=== PATIENT | female | born 1960 | race Two or more races ===

== ENCOUNTER 2016-07-28 11:01 | Outpatient (CLI) | payer BC ==
[2016-07-28 11:38] LABS: BASOPHILS % (AUTO) 0.5 % (0.0-2.0); EOSINOPHILS # (AUTO) 0.1 /CMM (0.0-0.7); HEMATOCRIT 42 % (33-45); HEMOGLOBIN 13.9 g/dL (11.5-14.8); LYMPHOCYTES # (AUTO) 1.8 /CMM (0.8-4.8); MEAN CORPUSCULAR HEMOGLOBIN 30 PG (26.0-33.0); MEAN CORPUSCULAR HGB CONC 33 g/dl (31.0-36.0); MEAN CORPUSCULAR VOLUME 91 fL (82-100); MONOCYTES # (AUTO) 0.3 /CMM (0.1-1.30); MONOCYTES % (AUTO) 5.8 % (2.0-12.0); NEUTROPHILS # (AUTO) 2.4 /CMM (1.8-8.9); NEUTROPHILS % (AUTO) 52.7 % (43.0-81.0); PLATELET COUNT (AUTO) 300 /CMM (150-450); RDW COEFFICIENT OF VARIATION 13.2 (11.5-15.0); RED BLOOD CELL COUNT(AUTO) 4.59 MIL/uL (4.0-5.2); WHITE BLOOD COUNT (AUTO) 4.6 K/uL (4.3-11.0)
[2016-07-28 11:59] LABS: ALBUMIN 4.1 g/dL (3.4-5.0); BILIRUBIN,TOTAL 0.5 mg/dL (0.2-1.0); CALCIUM, SERUM 8.9 mg/dL (8.5-10.1); CREATININE 0.7 mg/dL (0.6-1.3); POTASSIUM 4.5 mmol/L (3.5-5.1); TOTAL PROTEIN, SERUM 7.5 g/dL (6.4-8.2)
[2016-07-28 12:08] LABS: THYROID STIMULATING HORMONE 1.28 uIU/mL (0.358-3.74)
== END 2016-07-28 23:59 | disposition home or self-care (01) ==
LOC: LAB 11:01
PROVIDERS: ATTEND Family Medicine
DX: Z00.01 Encounter for general adult medical examination with abnormal findings (principal); N39.0 Urinary tract infection, site not specified; E55.9 Vitamin D deficiency, unspecified
CPT/HCPCS: 36415; 80053-TC; 80061-TC; 82306; 84439-TC; 84443-TC; 85025-TC; 87086-TC

== ENCOUNTER → 2016-08-11 | Outpatient (CLI) | payer BC | END | disposition home or self-care (01) | LOC: RAD 10:50 | PROVIDERS: ATTEND Family Medicine | DX: R07.9 Chest pain, unspecified (principal); R10.9 Unspecified abdominal pain; M47.819 Spondylosis without myelopathy or radiculopathy, site unspecified | CPT/HCPCS: 71020-TC ==

== ENCOUNTER 2016-08-19 08:48 | Outpatient (CLI) | payer BC | END 2016-08-19 23:59 | disposition home or self-care (01) | LOC: US 08:48 | PROVIDERS: ATTEND Family Medicine | DX: K80.20 Calculus of gallbladder without cholecystitis without obstruction (principal); K82.8 Other specified diseases of gallbladder; K76.0 Fatty (change of) liver, not elsewhere classified; M79.605 Pain in left leg | CPT/HCPCS: 76700-TC ==

== ENCOUNTER 2016-08-25 13:36 | Outpatient (CLI) | payer BC ==
[2016-08-25 15:13] LABS: BASOPHILS % (AUTO) 0.6 % (0.0-2.0); EOSINOPHILS # (AUTO) 0.1 /CMM (0.0-0.7); EOSINOPHILS % (AUTO) 2.6 % (0.0-6.0); HEMATOCRIT 41 % (33-45); HEMOGLOBIN 13.6 g/dL (11.5-14.8); LYMPHOCYTES # (AUTO) 1.9 /CMM (0.8-4.8); LYMPHOCYTES % (AUTO) 36.1 % (20.0-44.0); MEAN CORPUSCULAR HEMOGLOBIN 30 PG (26.0-33.0); MEAN CORPUSCULAR HGB CONC 34 g/dl (31.0-36.0); MEAN CORPUSCULAR VOLUME 91 fL (82-100); MONOCYTES # (AUTO) 0.3 /CMM (0.1-1.30); MONOCYTES % (AUTO) 5.6 % (2.0-12.0); NEUTROPHILS # (AUTO) 2.9 /CMM (1.8-8.9); NEUTROPHILS % (AUTO) 55.1 % (43.0-81.0); PLATELET COUNT (AUTO) 277 /CMM (150-450); RDW COEFFICIENT OF VARIATION 13.4 (11.5-15.0); RED BLOOD CELL COUNT(AUTO) 4.49 MIL/uL (4.0-5.2); WHITE BLOOD COUNT (AUTO) 5.3 K/uL (4.3-11.0)
[2016-08-25 15:26] LABS: APPEARANCE,URINE SL CLOUDY (CLEAR); BILIRUBIN,URINE NEGATIVE (NEGATIVE); BLOOD, URINE 3+ Ery/uL (NEGATIVE); COLOR,URINE YELLOW (YELLOW); KETONES,URINE TRACE (NEGATIVE); LEUKOCYTE ESTERASE ,URINE 2+ (NEGATIVE); NITRITE, URINE NEGATIVE (NEGATIVE); PROTEIN,URINE NEGATIVE (NEGATIVE); UGLUCOSE NEGATIVE (NEGATIVE); UROBILINOGEN,URINE 0.2 EU/dL (0.2)
[2016-08-25 15:52] LABS: ADD URINE CULTURE YES; BACTERIA,URINE Few /HPF (None Seen); SQUAMOUS EPITHELIAL CELL,UR Few /HPF (None Seen)
== END 2016-08-25 23:59 | disposition home or self-care (01) ==
LOC: LAB 13:36
PROVIDERS: ATTEND Family Medicine
DX: K80.00 Calculus of gallbladder with acute cholecystitis without obstruction (principal)
CPT/HCPCS: 36415; 81000-TC; 85025-TC; 87086-TC

== ENCOUNTER 2016-09-01 10:10 | Outpatient (CLI) | payer BC | END 2016-09-01 23:59 | disposition home or self-care (01) | LOC: LAB 10:10 | PROVIDERS: ATTEND Family Medicine | DX: Z12.11 Encounter for screening for malignant neoplasm of colon (principal) | CPT/HCPCS: 82272-TC ==

== ENCOUNTER 2016-09-02 09:01 | Outpatient (CLI) | payer BC ==
[2016-09-02] MEDS ORDERED: CT SWABBABLE VALVE TRANS SET 1 EA INFUS.SET MC ONE (09:23)
[2016-09-02] MEDS ORDERED: IV NS 0.9% 250 ML IV ONE (09:23)
[2016-09-02] MEDS ORDERED: IOHEXOL-300 100 ML VIAL IV ONE (09:24)
== END 2016-09-02 23:59 | disposition home or self-care (01) ==
LOC: CT 09:01
PROVIDERS: ATTEND Family Medicine
DX: N28.1 Cyst of kidney, acquired (principal); D25.9 Leiomyoma of uterus, unspecified; N28.89 Other specified disorders of kidney and ureter; J98.11 Atelectasis; K82.8 Other specified diseases of gallbladder; M47.899 Other spondylosis, site unspecified
CPT/HCPCS: 74178; J7050; Q9967

== ENCOUNTER 2017-01-05 11:15 | Outpatient (CLI) | payer BC | END 2017-01-05 23:59 | disposition home or self-care (01) | LOC: RAD 11:15 | PROVIDERS: ATTEND Family Medicine | DX: Z01.818 Encounter for other preprocedural examination (principal) | CPT/HCPCS: 71020-TC ==

== ENCOUNTER 2017-03-15 08:31 | Outpatient (CLI) | payer BC ==
[2017-03-15 09:34] LABS: CREATININE 0.7 mg/dL (0.6-1.3)
== END 2017-03-15 23:59 | disposition home or self-care (01) ==
LOC: LAB 08:31
PROVIDERS: ATTEND Urology
DX: D41.01 Neoplasm of uncertain behavior of right kidney (principal)
CPT/HCPCS: 36415; 82565-TC; 84520-TC

== ENCOUNTER 2017-03-16 08:43 | Outpatient (CLI) | payer BC ==
[2017-03-16] MEDS ORDERED: IOHEXOL-300 100 ML VIAL IV ONE (08:57)
== END 2017-03-16 23:59 | disposition home or self-care (01) ==
LOC: CT 08:43
PROVIDERS: ATTEND Urology
DX: N28.1 Cyst of kidney, acquired (principal); D25.9 Leiomyoma of uterus, unspecified; K80.20 Calculus of gallbladder without cholecystitis without obstruction; M47.896 Other spondylosis, lumbar region
CPT/HCPCS: 74178; Q9967

== ENCOUNTER 2017-07-13 11:02 | Outpatient (CLI) | payer BC ==
[2017-07-13 12:05] LABS: BASOPHILS # (AUTO) 0.1 /CMM (0.0-0.2); HEMATOCRIT 43 % (33-45); HEMOGLOBIN 14.7 g/dL (11.5-14.8); LYMPHOCYTES # (AUTO) 1.6 /CMM (0.8-4.8); LYMPHOCYTES % (AUTO) 30.6 % (20.0-44.0); MEAN CORPUSCULAR HGB CONC 34 g/dl (31.0-36.0); MEAN CORPUSCULAR VOLUME 91 fL (82-100); MONOCYTES # (AUTO) 0.3 /CMM (0.1-1.30); NEUTROPHILS # (AUTO) 3.3 /CMM (1.8-8.9); NEUTROPHILS % (AUTO) 60.4 % (43.0-81.0); PLATELET COUNT (AUTO) 334 /CMM (150-450); RED BLOOD CELL COUNT(AUTO) 4.74 MIL/uL (4.0-5.2); WHITE BLOOD COUNT (AUTO) 5.4 K/uL (4.3-11.0)
[2017-07-13 12:25] LABS: APPEARANCE,URINE SL CLOUDY (CLEAR); BILIRUBIN,URINE NEGATIVE (NEGATIVE); BLOOD, URINE 1+ Ery/uL (NEGATIVE); COLOR,URINE YELLOW (YELLOW); KETONES,URINE NEGATIVE (NEGATIVE); LEUKOCYTE ESTERASE ,URINE TRACE (NEGATIVE); NITRITE, URINE NEGATIVE (NEGATIVE); PH,URINE 6.5 (5.0-8.0); PROTEIN,URINE NEGATIVE (NEGATIVE); UGLUCOSE NEGATIVE (NEGATIVE); UROBILINOGEN,URINE 0.2 EU/dL (0.2)
[2017-07-13 12:36] LABS: ALBUMIN 4.1 g/dL (3.4-5.0); BILIRUBIN,TOTAL 0.7 mg/dL (0.2-1.0); CALCIUM, SERUM 9.2 mg/dL (8.5-10.1); CREATININE 0.7 mg/dL (0.6-1.3); TOTAL PROTEIN, SERUM 8.1 g/dL (6.4-8.2)
[2017-07-13 12:42] LABS: BACTERIA,URINE Few /HPF (None Seen)
[2017-07-13 12:43] LABS: SQUAMOUS EPITHELIAL CELL,UR Moderate /HPF (None Seen)
[2017-07-13 13:01] LABS: INR 0.96 (0.87-1.13)
== END 2017-07-13 23:59 | disposition home or self-care (01) ==
LOC: LAB 11:02
PROVIDERS: ATTEND Family Medicine
DX: Z01.818 Encounter for other preprocedural examination (principal); M47.894 Other spondylosis, thoracic region; Q25.46 Tortuous aortic arch; K52.9 Noninfective gastroenteritis and colitis, unspecified
CPT/HCPCS: 36415; 71046; 80053-TC; 81000-TC; 85025-TC; 85610-TC; 85730-TC

== ENCOUNTER 2017-07-28 06:19 | Day surgery (SDC) | payer BC ==
[~2017-07-28] VITALS: Ht 162.6 cm; Wt 93.9 kg
[~2017-07-28 06:19] MED LIST: CEFAZOLIN SODIUM/DEXTROSE,ISO 100 ML IV ONE
[2017-07-28] MEDS ORDERED: LIDOCAINE 1%-EPI 1:100,000 20 ML VIAL ONE (08:47)
[2017-07-28] MEDS ORDERED: ROCURONIUM BROMIDE 50 MG/5 ML ONE (08:50)
[2017-07-28] MEDS ORDERED: MIDAZOLAM HCL 2 MG/2ML VIAL ONE (08:50)
[2017-07-28] MEDS ORDERED: HYDROCODONE/APAP 5/325MG 1 EACH TABLET PO PRN ×2 (09:00)
[2017-07-28] MEDS ORDERED: ONDANSETRON HCL/PF 4 MG/2 ML VIAL IVP PRN (09:00)
[2017-07-28] MEDS ORDERED: BUPIVACAINE 0.25% 75 MG/30 ML VIAL ONE (09:10)
[2017-07-28] MEDS ORDERED: METRONIDAZOLE 500MG/ NS 100ML 100 ML IV ONE (09:14)
[2017-07-28] MEDS ORDERED: FENTANYL PF 100MCG/2ML AMPUL IV PRN (09:30)
[2017-07-28] MEDS ORDERED: HYDROMORPHONE INJ 2 MG/ML DISP.SYRIN IV ONE (11:00)
== END 2017-07-28 12:14 | disposition home or self-care (01) ==
LOC: DS 06:19
PROVIDERS: ATTEND Surgery
DX: K80.10 Calculus of gallbladder with chronic cholecystitis without obstruction (principal); K76.0 Fatty (change of) liver, not elsewhere classified; E66.9 Obesity, unspecified; Z68.35 Body mass index [BMI] 35.0-35.9, adult; I10 Essential (primary) hypertension; F32.9 Major depressive disorder, single episode, unspecified; K21.9 Gastro-esophageal reflux disease without esophagitis; M06.9 Rheumatoid arthritis, unspecified
CPT/HCPCS: 36415; 47379; 47562; 64488; 86850; 87081; J0690; J1100; J1170; J1885; J2250; J2405; J2704; J3010; J3490 ×3

== ENCOUNTER 2017-09-27 08:58 | Outpatient (CLI) | payer BC ==
[2017-09-27 10:25] LABS: APPEARANCE,URINE CLEAR (CLEAR); BILIRUBIN,URINE NEGATIVE (NEGATIVE); BLOOD, URINE TRACE Ery/uL (NEGATIVE); COLOR,URINE YELLOW (YELLOW); KETONES,URINE NEGATIVE (NEGATIVE); LEUKOCYTE ESTERASE ,URINE TRACE (NEGATIVE); NITRITE, URINE NEGATIVE (NEGATIVE); PROTEIN,URINE NEGATIVE (NEGATIVE); UGLUCOSE NEGATIVE (NEGATIVE); UROBILINOGEN,URINE 0.2 EU/dL (0.2)
[2017-09-27 10:26] LABS: BASOPHILS % (AUTO) 0.4 % (0.0-2.0); EOSINOPHILS % (AUTO) 1.7 % (0.0-6.0); HEMATOCRIT 39 % (33-45); HEMOGLOBIN 13.2 g/dL (11.5-14.8); LYMPHOCYTES # (AUTO) 1.6 /CMM (0.8-4.8); LYMPHOCYTES % (AUTO) 34.7 % (20.0-44.0); MEAN CORPUSCULAR HGB CONC 34 g/dl (31.0-36.0); MEAN CORPUSCULAR VOLUME 94 fL (82-100); MONOCYTES # (AUTO) 0.2 /CMM (0.1-1.30); MONOCYTES % (AUTO) 4.2 % (2.0-12.0); NEUTROPHILS # (AUTO) 2.8 /CMM (1.8-8.9); PLATELET COUNT (AUTO) 305 /CMM (150-450); RDW COEFFICIENT OF VARIATION 14.1 (11.5-15.0); RED BLOOD CELL COUNT(AUTO) 4.15 MIL/uL (4.0-5.2); WHITE BLOOD COUNT (AUTO) 4.7 K/uL (4.3-11.0)
[2017-09-27 10:36] LABS: BACTERIA,URINE Rare /HPF (None Seen); SQUAMOUS EPITHELIAL CELL,UR Few /HPF (None Seen)
[2017-09-27 10:48] LABS: ALBUMIN 3.8 g/dL (3.4-5.0); BILIRUBIN,TOTAL 0.4 mg/dL (0.2-1.0); CALCIUM, SERUM 8.5 mg/dL (8.5-10.1); CREATININE 0.7 mg/dL (0.6-1.3); TOTAL PROTEIN, SERUM 7.2 g/dL (6.4-8.2)
[2017-09-27 10:56] LABS: FREE T4 (FREE THYROXINE) 1.05 ng/dL (0.76-1.46); THYROID STIMULATING HORMONE 1.723 uIU/mL (0.358-3.74)
== END 2017-09-27 23:59 | disposition home or self-care (01) ==
LOC: LAB 08:58
PROVIDERS: ATTEND Family Medicine
DX: Z00.01 Encounter for general adult medical examination with abnormal findings (principal); Z11.59 Encounter for screening for other viral diseases; Z68.34 Body mass index [BMI] 34.0-34.9, adult; R31.9 Hematuria, unspecified
CPT/HCPCS: 36415; 80053-TC; 80061-TC; 81000-TC; 82306; 84439-TC; 84443-TC; 85025-TC; 86709-TC; 86803; 87086-TC

== ENCOUNTER 2017-11-01 10:24 | Outpatient (CLI) | payer BC | END 2017-11-01 23:59 | disposition home or self-care (01) | LOC: LAB 10:24 | PROVIDERS: ATTEND Family Medicine | DX: Z12.4 Encounter for screening for malignant neoplasm of cervix (principal); Z11.3 Encounter for screening for infections with a predominantly sexual mode of transmission | CPT/HCPCS: 87491; 87591; 88142 ==

== ENCOUNTER 2018-12-19 11:28 | Outpatient (CLI) | payer BC ==
[2018-12-19 12:04] LABS: CREATININE 0.7 mg/dL (0.6-1.3)
== END 2018-12-19 23:59 | disposition home or self-care (01) ==
LOC: LAB 11:28
PROVIDERS: ATTEND Family Medicine
DX: R31.9 Hematuria, unspecified (principal); I10 Essential (primary) hypertension
CPT/HCPCS: 36415; 82565-TC; 84520-TC

== ENCOUNTER 2018-12-26 08:37 | Outpatient (CLI) | payer BC ==
[2018-12-26] MEDS ORDERED: IOHEXOL-300 100 ML VIAL IV ONE (09:09)
[2018-12-26] MEDS ORDERED: CT SWABBABLE VALVE TRANS SET 1 EA INFUS.SET MC ONE (09:09)
[2018-12-26] MEDS ORDERED: IV NS 0.9% 250 ML IV ONE (09:09)
== END 2018-12-26 23:59 | disposition home or self-care (01) ==
LOC: CT 08:37
PROVIDERS: ATTEND Family Medicine
DX: N28.1 Cyst of kidney, acquired (principal); N28.89 Other specified disorders of kidney and ureter; D25.9 Leiomyoma of uterus, unspecified; K83.8 Other specified diseases of biliary tract; I10 Essential (primary) hypertension; Z90.49 Acquired absence of other specified parts of digestive tract
CPT/HCPCS: 74178; J7050; Q9967

== ENCOUNTER 2019-04-29 19:35 | Emergency (ER) | payer BC, OTHER ==
[~2019-04-29] VITALS: Ht 162.6 cm; Wt 90.7 kg
--- NOTE | 2019-04-29 21:46 | NUR ---
PT TO GET BLANCO LENS IN BILATERAL EYES.
--- NOTE | 2019-04-29 22:22 | NUR ---
LAN ADMINISTRATOR, ROBYN, IS AT THE BEDSIDE.
[2019-04-29 22:32] LABS: BASOPHILS # (AUTO) 0.1 /CMM (0.0-0.2); EOSINOPHILS % (AUTO) 2.7 % (0.0-6.0); HEMATOCRIT 40 % (33-45); HEMOGLOBIN 13.4 g/dL (11.5-14.8); LYMPHOCYTES # (AUTO) 1.9 /CMM (0.8-4.8); MEAN CORPUSCULAR HGB CONC 33 g/dl (31.0-36.0); MEAN CORPUSCULAR VOLUME 94 fL (82-100); MONOCYTES # (AUTO) 0.4 /CMM (0.1-1.30); MONOCYTES % (AUTO) 5.6 % (2.0-12.0); NEUTROPHILS # (AUTO) 3.9 /CMM (1.8-8.9); NEUTROPHILS % (AUTO) 60.7 % (43.0-81.0); PLATELET COUNT (AUTO) 294 /CMM (150-450); RED BLOOD CELL COUNT(AUTO) 4.26 MIL/uL (4.0-5.2); WHITE BLOOD COUNT (AUTO) 6.5 K/uL (4.3-11.0)
[2019-04-29 22:40] LABS: CALCIUM, SERUM 9.6 mg/dL (8.5-10.1); CREATININE 0.7 mg/dL (0.6-1.3); POTASSIUM 4.4 mmol/L (3.5-5.1)
[2019-04-29 22:46] LABS: ALBUMIN 3.9 g/dL (3.4-5.0); BILIRUBIN,TOTAL 0.2 mg/dL (0.2-1.0); TOTAL PROTEIN, SERUM 7.6 g/dL (6.4-8.2)
--- NOTE | 2019-04-29 23:18 | NUR ---
Patient discharged to home in stable condition. Written and verbal after care instructions given. Patient verbalizes understanding of instruction AND RX. PT REC'D AN EXCUSE FOR WORK. PT AMBULATED OUT WITH A STEADY GAIT. VSS. NAD NOTED.
[2019-04-29 23:21] VITALS: BP 138/75
== END 2019-04-29 23:21 | disposition home or self-care (01) ==
LOC: ER 19:38
DX: Z77.21 Contact with and (suspected) exposure to potentially hazardous body fluids (principal); I10 Essential (primary) hypertension; Z98.890 Other specified postprocedural states; Z91.013 Allergy to seafood
CPT/HCPCS: 36415; 80053-TC; 80074; 85025-TC

== ENCOUNTER 2019-05-30 14:52 | Outpatient (CLI) | payer BC | END 2019-05-30 23:59 | disposition home or self-care (01) | LOC: CARD 14:52 | PROVIDERS: ATTEND Internal Medicine Cardiovascular Disease | DX: I73.9 Peripheral vascular disease, unspecified (principal) | CPT/HCPCS: 93926-TC ==

== ENCOUNTER 2019-09-21 15:12 | Emergency (ER) | payer BC, OTHER ==
[~2019-09-21] VITALS: Ht 162.6 cm; Wt 101.6 kg
[2019-09-21 15:17] VITALS: BP 161/98
--- NOTE | 2019-09-21 15:48 | NUR ---
COVID SWAB OBTAINED AND SENT TO LAB.
--- NOTE | 2019-09-21 15:49 | NUR ---
Patient discharged to home in stable condition. Written and verbal after care instructions given. Patient verbalizes understanding of instruction.
--- NOTE | 2019-09-23 00:56 | NUR ---
RECEIVED A CALL FROM LAB W/ NEGATIVE COVID RESULTS
== END 2019-09-21 15:50 | disposition home or self-care (01) ==
LOC: ER 15:19
DX: Z11.59 Encounter for screening for other viral diseases (principal); I10 Essential (primary) hypertension
CPT/HCPCS: 99283; C9803; U0003

== ENCOUNTER 2019-10-01 14:44 | Emergency (ER) | payer OTHER ==
[~2019-10-01] VITALS: Ht 162.6 cm; Wt 93.0 kg
[2019-10-01 14:54] VITALS: BP 145/93
--- NOTE | 2019-10-04 07:05 | NUR ---
COVID TEST NEGATIVE
== END 2019-10-01 15:54 | disposition home or self-care (01) ==
LOC: ER 14:54
DX: Z11.59 Encounter for screening for other viral diseases (principal); I10 Essential (primary) hypertension
CPT/HCPCS: 99283; U0003; C9803-CS

== ENCOUNTER 2019-10-15 15:12 | Emergency (ER) | payer BC, OTHER ==
[~2019-10-15] VITALS: Ht 162.6 cm; Wt 95.3 kg
[2019-10-15 15:27] VITALS: BP 145/85
== END 2019-10-15 15:38 | disposition home or self-care (01) ==
LOC: ER 15:20
DX: Z11.59 Encounter for screening for other viral diseases (principal)
CPT/HCPCS: 99283; C9803; U0003

== ENCOUNTER 2019-10-22 12:57 | Emergency (ER) | payer OTHER ==
[~2019-10-22] VITALS: Ht 162.6 cm; Wt 95.3 kg
--- NOTE | 2019-10-22 13:00 | NUR ---
Called NO response
[2019-10-22 13:11] VITALS: BP 140/82
--- NOTE | 2019-10-22 13:40 | NUR ---
COVID SWAB DONE AND SENT TO LAB
--- NOTE | 2019-10-22 14:18 | NUR ---
Patient discharged to home in stable condition. Written and verbal after care instructions given. Patient verbalizes understanding of instruction. Pt ambulatory with a steady gait
== END 2019-10-22 14:19 | disposition home or self-care (01) ==
LOC: ER 13:05
DX: Z11.59 Encounter for screening for other viral diseases (principal); I10 Essential (primary) hypertension
CPT/HCPCS: 99283; C9803; U0003

== ENCOUNTER 2019-10-28 15:33 | Emergency (ER) | payer OTHER ==
[~2019-10-28] VITALS: Ht 162.6 cm; Wt 95.3 kg
[2019-10-28 15:47] VITALS: BP 134/84
== END 2019-10-28 16:21 | disposition home or self-care (01) ==
LOC: ER 15:39
DX: Z11.59 Encounter for screening for other viral diseases (principal); I10 Essential (primary) hypertension; Z91.013 Allergy to seafood
CPT/HCPCS: 99283; C9803; U0003

== ENCOUNTER 2019-11-05 14:55 | Emergency (ER) | payer OTHER ==
[~2019-11-05] VITALS: Ht 162.6 cm; Wt 95.3 kg
[2019-11-05 15:14] VITALS: BP 152/100
--- NOTE | 2019-11-05 15:42 | NUR ---
COVID SWAB OBTAINED AND SENT TO LAB.
--- NOTE | 2019-11-05 15:47 | NUR ---
Patient discharged to home in stable condition. Written and verbal after care instructions given. Patient verbalizes understanding of instruction.
== END 2019-11-05 15:48 | disposition home or self-care (01) ==
LOC: ER 14:55
DX: Z03.818 Encounter for observation for suspected exposure to other biological agents ruled out (principal); I10 Essential (primary) hypertension
CPT/HCPCS: 99283; C9803; U0003

== ENCOUNTER 2019-11-12 14:02 | Emergency (ER) | payer OTHER ==
[~2019-11-12] VITALS: Ht 162.6 cm; Wt 95.3 kg
[2019-11-12 14:10] VITALS: BP 140/87
--- NOTE | 2019-11-12 14:57 | NUR ---
covid 19 swab collected and sent to lab
--- NOTE | 2019-11-12 14:58 | NUR ---
Patient discharged to home in stable condition. Written and verbal after care instructions given. Patient verbalizes understanding of instruction.
== END 2019-11-12 14:58 | disposition home or self-care (01) ==
LOC: ER 14:03
DX: Z20.828 Contact with and (suspected) exposure to other viral communicable diseases (principal); I10 Essential (primary) hypertension; Z91.013 Allergy to seafood
CPT/HCPCS: 99283; C9803; U0003

== ENCOUNTER 2019-12-17 10:51 | Emergency (ER) | payer OTHER ==
[~2019-12-17] VITALS: Ht 162.6 cm; Wt 95.3 kg
[2019-12-17 10:51] VITALS: BP 146/88
--- NOTE | 2019-12-17 11:26 | NUR ---
covid test taken and sent to lab. Patient discharged to home in stable condition. Written and verbal after care instructions given. Patient verbalizes understanding of instruction.
== END 2019-12-17 11:28 | disposition home or self-care (01) ==
LOC: ER 10:52
DX: Z20.828 Contact with and (suspected) exposure to other viral communicable diseases (principal); I10 Essential (primary) hypertension; Z91.013 Allergy to seafood
CPT/HCPCS: 99283; C9803; U0003

== ENCOUNTER 2019-12-24 10:06 | Emergency (ER) | payer OTHER ==
[~2019-12-24] VITALS: Ht 162.6 cm; Wt 95.3 kg
[2019-12-24 10:23] VITALS: BP 147/89
== END 2019-12-24 11:52 | disposition home or self-care (01) ==
LOC: ER 10:06
DX: Z20.828 Contact with and (suspected) exposure to other viral communicable diseases (principal)
CPT/HCPCS: 99283; C9803; U0003

== ENCOUNTER 2019-12-31 14:04 | Emergency (ER) | payer OTHER ==
[~2019-12-31] VITALS: Ht 165.1 cm; Wt 83.9 kg
[2019-12-31 14:07] VITALS: BP 136/78
--- NOTE | 2019-12-31 15:01 | NUR ---
Patient discharged to home in stable condition. Written and verbal after care instructions given. Patient verbalizes understanding of instruction. Pt ambulatory with a steady gait
--- NOTE | 2019-12-31 15:01 | NUR ---
COVID SWAB DONE AND SENT TO LAB
== END 2019-12-31 15:03 | disposition home or self-care (01) ==
LOC: ER 14:06
DX: Z20.828 Contact with and (suspected) exposure to other viral communicable diseases (principal); I10 Essential (primary) hypertension; Z91.013 Allergy to seafood
CPT/HCPCS: 99283; C9803; U0003

== ENCOUNTER 2020-01-06 15:48 | Emergency (ER) | payer OTHER ==
[~2020-01-06] VITALS: Ht 162.6 cm; Wt 95.3 kg
[2020-01-06 15:50] VITALS: BP 131/67
--- NOTE | 2020-01-06 16:18 | NUR ---
COVID SWAB DONE AND SENT TO LAB
--- NOTE | 2020-01-06 16:22 | NUR ---
Patient discharged to home in stable condition. Written and verbal after care instructions given. Patient verbalizes understanding of instruction.
== END 2020-01-06 16:30 | disposition home or self-care (01) ==
LOC: ER 15:52
DX: Z20.828 Contact with and (suspected) exposure to other viral communicable diseases (principal); I10 Essential (primary) hypertension; Z91.013 Allergy to seafood
CPT/HCPCS: 99283; C9803; U0003

== ENCOUNTER 2020-01-13 14:40 | Emergency (ER) | payer OTHER ==
[~2020-01-13] VITALS: Ht 162.6 cm; Wt 95.3 kg
[2020-01-13 14:44] VITALS: BP 131/71
--- NOTE | 2020-01-13 15:39 | NUR ---
Patient discharged to home in stable condition. Written and verbal after care instructions given. Patient verbalizes understanding of instruction.
== END 2020-01-13 15:39 | disposition home or self-care (01) ==
LOC: ER 14:41
DX: Z20.828 Contact with and (suspected) exposure to other viral communicable diseases (principal); Z91.013 Allergy to seafood; I10 Essential (primary) hypertension
CPT/HCPCS: 99283; C9803; U0003

== ENCOUNTER 2020-01-20 14:33 | Emergency (ER) | payer OTHER ==
[~2020-01-20] VITALS: Ht 162.6 cm; Wt 96.6 kg
[2020-01-20 14:47] VITALS: BP 125/81
--- NOTE | 2020-01-20 15:11 | NUR ---
COVID SWAB DONE AND SENT TO LAB
--- NOTE | 2020-01-20 15:12 | NUR ---
Patient discharged to home in stable condition. Written and verbal after care instructions given. Patient verbalizes understanding of instruction. Pt ambulatory with a steady gait
== END 2020-01-20 15:12 | disposition home or self-care (01) ==
LOC: ER 14:43
DX: Z20.828 Contact with and (suspected) exposure to other viral communicable diseases (principal); I10 Essential (primary) hypertension; Z91.013 Allergy to seafood
CPT/HCPCS: 99283; C9803; U0003

== ENCOUNTER 2020-01-28 14:25 | Emergency (ER) | payer OTHER ==
[~2020-01-28] VITALS: Ht 162.6 cm; Wt 95.3 kg
[2020-01-28 14:31] VITALS: BP 135/81
== END 2020-01-28 14:53 | disposition home or self-care (01) ==
LOC: ER 14:51
DX: Z20.828 Contact with and (suspected) exposure to other viral communicable diseases (principal); I10 Essential (primary) hypertension; Z91.013 Allergy to seafood
CPT/HCPCS: 99283; C9803; U0003

== ENCOUNTER 2020-02-03 15:02 | Emergency (ER) | payer OTHER ==
[~2020-02-03] VITALS: Ht 162.6 cm; Wt 96.6 kg
[2020-02-03 15:05] VITALS: BP 138/92
--- NOTE | 2020-02-03 15:21 | NUR ---
Patient discharged to home in stable condition. Written and verbal after care instructions given. Patient verbalizes understanding of instruction. Pt ambulatory with a steady gait
--- NOTE | 2020-02-03 15:21 | NUR ---
COVID SWAB DONE AND SENT TO LAB
--- NOTE | 2020-02-04 20:54 | NUR ---
LAB CALLED REGARDING NEGATIVE COVID RESULT.
== END 2020-02-03 15:22 | disposition home or self-care (01) ==
LOC: ER 15:03
DX: Z20.828 Contact with and (suspected) exposure to other viral communicable diseases (principal); I10 Essential (primary) hypertension; Z91.013 Allergy to seafood
CPT/HCPCS: 99283; C9803; U0003

== ENCOUNTER 2020-02-10 14:31 | Emergency (ER) | payer OTHER ==
[~2020-02-10] VITALS: Ht 162.6 cm; Wt 86.2 kg
--- NOTE | 2020-02-10 14:56 | NUR ---
covid swab done an dsent to lab
[2020-02-10 14:58] VITALS: BP 128/65
--- NOTE | 2020-02-10 14:59 | NUR ---
Patient discharged to home in stable condition. Written and verbal after care instructions given. Patient verbalizes understanding of instruction. Pt ambulatory with a steady gait
== END 2020-02-10 15:00 | disposition home or self-care (01) ==
LOC: ER 14:35
DX: Z20.828 Contact with and (suspected) exposure to other viral communicable diseases (principal); I10 Essential (primary) hypertension; Z91.013 Allergy to seafood
CPT/HCPCS: 99283; C9803; U0003

== ENCOUNTER 2020-02-17 15:48 | Emergency (ER) | payer OTHER ==
[~2020-02-17] VITALS: Ht 162.6 cm; Wt 95.3 kg
[2020-02-17 15:54] VITALS: BP 130/76
== END 2020-02-17 16:31 | disposition home or self-care (01) ==
LOC: ER 15:50
DX: Z20.828 Contact with and (suspected) exposure to other viral communicable diseases (principal); I10 Essential (primary) hypertension; Z91.013 Allergy to seafood
CPT/HCPCS: 99283; C9803; U0003

== ENCOUNTER 2020-02-25 12:30 | Emergency (ER) | payer OTHER ==
[~2020-02-25] VITALS: Ht 162.6 cm; Wt 95.3 kg
[2020-02-25 12:36] VITALS: BP 141/79
== END 2020-02-25 12:49 | disposition home or self-care (01) ==
LOC: ER 12:31
DX: Z20.828 Contact with and (suspected) exposure to other viral communicable diseases (principal); I10 Essential (primary) hypertension; Z91.013 Allergy to seafood
CPT/HCPCS: 99283; C9803; U0003

== ENCOUNTER 2020-03-02 15:01 | Emergency (ER) | payer OTHER | END 2020-03-02 15:39 | disposition home or self-care (01) | LOC: ER 15:05 | DX: Z20.828 Contact with and (suspected) exposure to other viral communicable diseases (principal); I10 Essential (primary) hypertension; Z91.013 Allergy to seafood | CPT/HCPCS: 99283; C9803; U0003 ==

== ENCOUNTER 2020-03-09 16:00 | Emergency (ER) | payer OTHER ==
[~2020-03-09] VITALS: Ht 162.6 cm; Wt 95.3 kg
[2020-03-09 16:05] VITALS: BP 136/80
--- NOTE | 2020-03-09 20:02 | NUR ---
Patient discharged to home in stable condition. Written and verbal after care instructions given. Patient verbalizes understanding of instruction.
== END 2020-03-09 20:02 | disposition home or self-care (01) ==
LOC: ER 16:05
DX: Z20.828 Contact with and (suspected) exposure to other viral communicable diseases (principal); I10 Essential (primary) hypertension; Z91.013 Allergy to seafood
CPT/HCPCS: 99283; C9803; U0003

== ENCOUNTER 2020-03-16 13:42 | Emergency (ER) | payer OTHER ==
[~2020-03-16] VITALS: Ht 162.6 cm; Wt 95.3 kg
[2020-03-16 13:49] VITALS: BP 128/81
--- NOTE | 2020-03-16 14:07 | NUR ---
covid swab collected and sent to lab
--- NOTE | 2020-03-16 14:08 | NUR ---
Patient discharged to home in stable condition. Written and verbal after care instructions given. Patient verbalizes understanding of instruction.
== END 2020-03-16 14:08 | disposition home or self-care (01) ==
LOC: ER 13:46
DX: Z20.828 Contact with and (suspected) exposure to other viral communicable diseases (principal); I10 Essential (primary) hypertension; Z91.013 Allergy to seafood
CPT/HCPCS: 99283; C9803; U0003

== ENCOUNTER 2020-03-21 14:47 | Emergency (ER) | payer OTHER ==
[~2020-03-21] VITALS: Ht 162.6 cm; Wt 95.3 kg
[2020-03-21 14:57] VITALS: BP 116/81
--- NOTE | 2020-03-21 15:30 | NUR ---
covid 19 swab collected and sent to lab
--- NOTE | 2020-03-21 15:35 | NUR ---
Patient discharged to home in stable condition. Written and verbal after care instructions given. Patient verbalizes understanding of instruction.
== END 2020-03-21 15:35 | disposition home or self-care (01) ==
LOC: ER 14:48
DX: Z20.828 Contact with and (suspected) exposure to other viral communicable diseases (principal); I10 Essential (primary) hypertension; Z91.013 Allergy to seafood
CPT/HCPCS: 99283; C9803; U0003

== ENCOUNTER 2020-03-24 14:54 | Emergency (ER) | payer OTHER ==
[~2020-03-24] VITALS: Ht 162.6 cm; Wt 95.3 kg
[2020-03-24 15:28] VITALS: BP 129/82
--- NOTE | 2020-03-24 16:17 | NUR ---
covid 19 swab collected and sent to lab
--- NOTE | 2020-03-24 16:20 | NUR ---
Patient discharged to home in stable condition. Written and verbal after care instructions given. Patient verbalizes understanding of instruction.
== END 2020-03-24 16:20 | disposition home or self-care (01) ==
LOC: ER 14:58
DX: Z20.828 Contact with and (suspected) exposure to other viral communicable diseases (principal); I10 Essential (primary) hypertension; Z91.013 Allergy to seafood
CPT/HCPCS: 99283; C9803; U0003

== ENCOUNTER 2020-03-26 12:00 | Emergency (ER) | payer OTHER ==
[~2020-03-26] VITALS: Ht 162.6 cm; Wt 95.3 kg
[2020-03-26 12:42] VITALS: BP 133/71
--- NOTE | 2020-03-26 12:43 | NUR ---
COVID SWAB DONE AND SENT TO LAB
--- NOTE | 2020-03-26 12:44 | NUR ---
Patient discharged to home in stable condition. Written and verbal after care instructions given. Patient verbalizes understanding of instruction. Pt ambulatory with a steady gait
[2020-03-31] MEDS ORDERED: METF850T PO (10:43)
[2020-03-31] MEDS ORDERED: NITR0.4T (10:43)
[2020-03-31] MEDS ORDERED: RIVA2.5T PO (10:43)
== END 2020-03-26 13:09 | disposition home or self-care (01) ==
LOC: ER 12:02
DX: Z20.828 Contact with and (suspected) exposure to other viral communicable diseases (principal); I10 Essential (primary) hypertension; Z91.013 Allergy to seafood
CPT/HCPCS: 99283; C9803; U0003

== ENCOUNTER 2020-04-06 13:58 | Emergency (ER) | payer OTHER ==
[~2020-04-06] VITALS: Ht 162.6 cm; Wt 95.3 kg
[~2020-04-06 13:58] MED LIST changes: -CEFAZOLIN SODIUM/DEXTROSE,ISO 100 ML IV ONE; +METF850T PO; +NITR0.4T; +RIVA2.5T PO
[2020-04-06 15:00] VITALS: BP 134/76
--- NOTE | 2020-04-06 16:01 | NUR ---
covid swab collected and sent to lab
--- NOTE | 2020-04-06 16:01 | NUR ---
Patient discharged to home in stable condition. Written and verbal after care instructions given. Patient verbalizes understanding of instruction.
== END 2020-04-06 16:03 | disposition home or self-care (01) ==
LOC: ER 14:01
DX: Z20.828 Contact with and (suspected) exposure to other viral communicable diseases (principal); I10 Essential (primary) hypertension; E11.9 Type 2 diabetes mellitus without complications; Z79.84 Long term (current) use of oral hypoglycemic drugs; Z79.899 Other long term (current) drug therapy; Z91.013 Allergy to seafood; Z79.01 Long term (current) use of anticoagulants
CPT/HCPCS: 99283; C9803; U0003

== ENCOUNTER 2020-06-09 09:12 | Outpatient (CLI) | payer BC ==
[2020-06-09 10:09] LABS: BASOPHILS % (AUTO) 0.5 % (0.0-2.0); EOSINOPHILS % (AUTO) 1.9 % (0.0-6.0); HEMATOCRIT 40 % (33-45); HEMOGLOBIN 13.4 g/dL (11.5-14.8); LYMPHOCYTES # (AUTO) 1.7 /CMM (0.8-4.8); LYMPHOCYTES % (AUTO) 34.1 % (20.0-44.0); MEAN CORPUSCULAR HGB CONC 33 g/dl (31.0-36.0); MEAN CORPUSCULAR VOLUME 94 fL (82-100); MONOCYTES # (AUTO) 0.3 /CMM (0.1-1.30); MONOCYTES % (AUTO) 5.6 % (2.0-12.0); NEUTROPHILS % (AUTO) 57.9 % (43.0-81.0); PLATELET COUNT (AUTO) 302 /CMM (150-450); RED BLOOD CELL COUNT(AUTO) 4.29 MIL/uL (4.0-5.2); WHITE BLOOD COUNT (AUTO) 5.1 K/uL (4.3-11.0)
[2020-06-09 10:48] LABS: BILIRUBIN,URINE NEGATIVE (NEGATIVE); COLOR,URINE YELLOW (YELLOW); LEUKOCYTE ESTERASE ,URINE MODERATE (NEGATIVE); NITRITE, URINE NEGATIVE (NEGATIVE); PH,URINE 5.5 (5.0-8.0); PROTEIN,URINE NEGATIVE (NEGATIVE); UGLUCOSE NEGATIVE (NEGATIVE); UROBILINOGEN,URINE 0.2 EU/dL (0.2)
[2020-06-09 11:01] LABS: ALBUMIN 3.8 g/dL (3.4-5.0); BILIRUBIN,TOTAL 0.5 mg/dL (0.2-1.0); CALCIUM, SERUM 8.8 mg/dL (8.5-10.1); CREATININE 0.7 mg/dL (0.6-1.3); TOTAL PROTEIN, SERUM 7.6 g/dL (6.4-8.2)
[2020-06-09 11:12] LABS: THYROID STIMULATING HORMONE 1.423 uIU/mL (0.358-3.74)
[2020-06-09 11:41] LABS: POTASSIUM 4.1 mmol/L (3.5-5.1)
[2020-06-09 11:44] LABS: BACTERIA,URINE Moderate /HPF (None Seen); SQUAMOUS EPITHELIAL CELL,UR Many /HPF (None Seen)
== END 2020-06-09 23:59 | disposition home or self-care (01) ==
LOC: LAB 09:12
PROVIDERS: ATTEND Family Medicine
DX: E55.9 Vitamin D deficiency, unspecified (principal); J30.9 Allergic rhinitis, unspecified; Z00.01 Encounter for general adult medical examination with abnormal findings; Z68.34 Body mass index [BMI] 34.0-34.9, adult; Z79.899 Other long term (current) drug therapy
CPT/HCPCS: 36415; 80053-TC; 80061-TC; 81001; 82306; 84439-TC; 84443-TC; 85025-TC; 87086-TC

== ENCOUNTER 2020-06-13 16:08 | Emergency (ER) | payer BC, OTHER ==
[~2020-06-13] VITALS: Ht 162.6 cm; Wt 94.8 kg
[2020-06-13 16:14] VITALS: BP 132/78
--- NOTE | 2020-06-13 16:26 | NUR ---
COVID SWAB DONE AND SENT TO LAB
--- NOTE | 2020-06-13 16:27 | NUR ---
Patient discharged to home in stable condition. Written and verbal after care instructions given. Patient verbalizes understanding of instruction. Pt ambulatory with a steady gait
== END 2020-06-13 16:27 | disposition home or self-care (01) ==
LOC: ER 16:10
DX: Z20.822 Contact with and (suspected) exposure to COVID-19 (principal); I10 Essential (primary) hypertension; E11.9 Type 2 diabetes mellitus without complications; Z91.013 Allergy to seafood; Z79.01 Long term (current) use of anticoagulants; Z79.84 Long term (current) use of oral hypoglycemic drugs
CPT/HCPCS: 99283; C9803; U0003

== ENCOUNTER 2020-11-25 07:54 | Outpatient (CLI) | payer BC ==
[2020-11-25 09:34] LABS: CREATININE 0.7 mg/dL (0.6-1.3)
[2020-11-25] MEDS ORDERED: CT SWABBABLE VALVE TRANS SET 1 EA INFUS.SET MC ONE (09:50)
[2020-11-25] MEDS ORDERED: IV NS 0.9% 250 ML IV ONE (09:50)
[2020-11-25] MEDS ORDERED: IOHEXOL-300 100 ML VIAL IV ONE (09:50)
== END 2020-11-25 23:59 | disposition home or self-care (01) ==
LOC: CT 07:54
PROVIDERS: ATTEND Family Medicine
DX: R31.9 Hematuria, unspecified (principal); N28.1 Cyst of kidney, acquired; J92.9 Pleural plaque without asbestos; K76.0 Fatty (change of) liver, not elsewhere classified; K75.3 Granulomatous hepatitis, not elsewhere classified; D25.9 Leiomyoma of uterus, unspecified; M41.86 Other forms of scoliosis, lumbar region; M47.816 Spondylosis without myelopathy or radiculopathy, lumbar region; Z90.49 Acquired absence of other specified parts of digestive tract
CPT/HCPCS: 36415; 74178; 82565; 84520; J7050; Q9967

== ENCOUNTER 2021-07-27 11:41 | Emergency (ER) | payer OTHER ==
[~2021-07-27] VITALS: Ht 162.6 cm; Wt 81.6 kg
--- NOTE | 2021-07-27 11:45 | NUR ---
BIBS THIS 61YO FEMALE PATIENT BECAUSE OF SWELLING ON RIGHT KNEE SECONDARY TO ACCIDENTALLY TWISTING HER RIGHT KNEE WHILE MOVING A PATIENT. PAIN SCALE OF 9/10. PATIENT IS AAOX4. PLACED COMFORTABLY IN BED. VITALS CHECKED.
--- NOTE | 2021-07-27 11:55 | NUR ---
SEEN BY DR FENTON AT BEDSIDE
--- NOTE | 2021-07-27 12:19 | NUR ---
XRAY AT BEDSIDE
[2021-07-27] MEDS ORDERED: KETOROLAC TROMETHAMINE INJ 30 MG/ML VIAL IM ONE (13:00)
[2021-07-27] MEDS ORDERED: ACET-2605 PO (13:09)
[2021-07-27] MEDS ORDERED: KETOROLAC TROMETHAMINE 15 MG/ML VIAL ONE (13:10)
--- NOTE | 2021-07-27 13:19 | NUR ---
ELASTIC BANDAGE APPLIED TO AREA. PT GIVEN INSTRUCTION ON WHAT TO DO WITH THE LEG.
--- NOTE | 2021-07-27 13:20 | NUR ---
TORADOL IM GIVEN
--- NOTE | 2021-07-27 13:20 | NUR ---
Patient discharged to home in stable condition. Written and verbal after care instructions given. Patient verbalizes understanding of instruction.
[2021-07-27 13:21] VITALS: BP 134/81
== END 2021-07-27 13:22 | disposition home or self-care (01) ==
LOC: ER 11:41
DX: S83.91XA Sprain of unspecified site of right knee, initial encounter (principal); I10 Essential (primary) hypertension; E11.9 Type 2 diabetes mellitus without complications; Z91.013 Allergy to seafood; Z79.899 Other long term (current) drug therapy; X50.1XXA Overexertion from prolonged static or awkward postures, initial encounter; Y93.89 Activity, other specified; Y92.89 Other specified places as the place of occurrence of the external cause; Y99.8 Other external cause status
CPT/HCPCS: 73564; 96372; 99283; J1885

== ENCOUNTER 2021-12-11 15:31 | Emergency (ER) | payer OTHER ==
[~2021-12-11] VITALS: Ht 162.6 cm; Wt 85.7 kg
[~2021-12-11 15:31] MED LIST changes: +ACET-2605 PO
--- NOTE | 2021-12-11 15:34 | NUR ---
TO ER BED 13, CAME IN FOR LOWER L BACK PAIN FROM PULLING A PATIENT AT WORK 01/10 PS, AAOX3, BREATHING EVEN AND NON LABORED, AWAITING MD ORDER
[2021-12-11] MEDS ORDERED: KETOROLAC TROMETHAMINE INJ 60 MG/2 ML VIAL IM ONE ×2 (15:59→16:00)
--- NOTE | 2021-12-11 16:13 | NUR ---
PT TAKEN TO RADIOLOGY
[2021-12-11] MEDS ORDERED: IBUP-1957 PO (17:21)
[2021-12-11] MEDS ORDERED: METH-647 PO (17:21)
--- NOTE | 2021-12-11 17:53 | NUR ---
Patient discharged to home in stable condition. Written and verbal after care instructions given. Patient verbalizes understanding of instruction.
[2021-12-11 17:55] VITALS: BP 136/80
== END 2021-12-11 17:55 | disposition home or self-care (01) ==
LOC: ER 15:43
DX: M54.50 Low back pain, unspecified (principal); I10 Essential (primary) hypertension; E11.9 Type 2 diabetes mellitus without complications; Z91.013 Allergy to seafood; Z79.899 Other long term (current) drug therapy; Z79.84 Long term (current) use of oral hypoglycemic drugs
CPT/HCPCS: 99284; 72131; 96372; J1885

== ENCOUNTER 2022-02-07 09:28 | Outpatient (CLI) | payer BC ==
[~2022-02-07 09:28] MED LIST changes: +IBUP-1957 PO; +METH-647 PO
[2022-02-07 10:10] LABS: CREATININE 0.8 mg/dL (0.6-1.3)
== END 2022-02-07 23:59 | disposition home or self-care (01) ==
LOC: LAB 09:28
PROVIDERS: ATTEND Family Medicine
DX: N28.89 Other specified disorders of kidney and ureter (principal)
CPT/HCPCS: 36415; 82565-TC; 84520-TC

== ENCOUNTER 2022-02-08 08:45 | Outpatient (CLI) | payer BC ==
[2022-02-08] MEDS ORDERED: IV NS 0.9% 250 ML IV ONE (09:33)
[2022-02-08] MEDS ORDERED: IOHEXOL-300 100 ML VIAL IV ONE (09:33)
[2022-02-08] MEDS ORDERED: CT SWABBABLE VALVE TRANS SET 1 EA INFUS.SET MC ONE (09:33)
== END 2022-02-08 23:59 | disposition home or self-care (01) ==
LOC: CT 08:45
PROVIDERS: ATTEND Family Medicine
DX: N28.1 Cyst of kidney, acquired (principal); N28.89 Other specified disorders of kidney and ureter; D25.9 Leiomyoma of uterus, unspecified; M47.817 Spondylosis without myelopathy or radiculopathy, lumbosacral region; M47.814 Spondylosis without myelopathy or radiculopathy, thoracic region
CPT/HCPCS: 74178; Q9967; J7050

== ENCOUNTER 2023-11-28 11:19 | Outpatient (CLI) | payer BC | END 2023-11-28 23:59 | disposition home or self-care (01) | LOC: WOU 11:19 | PROVIDERS: ATTEND Podiatrist Foot & Ankle Surgery | DX: M77.32 Calcaneal spur, left foot (principal); M77.31 Calcaneal spur, right foot; M72.2 Plantar fascial fibromatosis; R60.0 Localized edema; M79.672 Pain in left foot; M79.671 Pain in right foot | CPT/HCPCS: G0463 ==

== ENCOUNTER 2023-12-29 13:12 | Emergency (ER) | payer BC, OTHER ==
[~2023-12-29] VITALS: Ht 162.6 cm; Wt 98.9 kg
[2023-12-29 13:26] VITALS: TEMP 97.6
[2023-12-29 15:13] LABS: BASOPHILS % (AUTO) 0.5 % (0.0-2.0); EOSINOPHILS # (AUTO) 0.1 K/uL (0.0-0.7); EOSINOPHILS % (AUTO) 1.1 % (0.0-6.0); HEMATOCRIT 41 % (33-45); HEMOGLOBIN 13.4 g/dL (11.5-14.8); LYMPHOCYTES # (AUTO) 1.6 K/uL (0.8-4.8); LYMPHOCYTES % (AUTO) 24.4 % (20.0-44.0); MEAN CORPUSCULAR HEMOGLOBIN 30 PG (26.0-33.0); MEAN CORPUSCULAR HGB CONC 33 g/dl (31.0-36.0); MEAN CORPUSCULAR VOLUME 92 fL (82-100); MONOCYTES # (AUTO) 0.4 K/uL (0.1-1.30); MONOCYTES % (AUTO) 5.6 % (2.0-12.0); NEUTROPHILS # (AUTO) 4.4 K/uL (1.8-8.9); NEUTROPHILS % (AUTO) 68.4 % (43.0-81.0); PLATELET COUNT (AUTO) 316 K/uL (150-450); RED BLOOD CELL COUNT(AUTO) 4.46 MIL/uL (4.0-5.2); RED CELL DISTRIBUTION WIDTH 14.6 % (11.5-15.0); WHITE BLOOD COUNT (AUTO) 6.5 K/uL (4.3-11.0)
[2023-12-29 15:27] LABS: INR 0.99 (0.91-1.10); PARTIAL THROMBOPLASTIN TIME 29.6 SEC (24.3-34.3); PROTHROMBIN TIME 10.5 SECS (9.2-11.1)
[2023-12-29 15:33] LABS: CREATININE 0.7 mg/dL (0.6-1.3); POTASSIUM 4.2 mmol/L (3.5-5.1)
[2023-12-29 15:37] LABS: APPEARANCE,URINE CLEAR (CLEAR); BILIRUBIN,URINE NEGATIVE (NEGATIVE); BLOOD, URINE 3+ Ery/uL (NEGATIVE); COLOR,URINE YELLOW (YELLOW); KETONES,URINE NEGATIVE (NEGATIVE); LEUKOCYTE ESTERASE ,URINE 3+ (NEGATIVE); NITRITE, URINE NEGATIVE (NEGATIVE); PROTEIN,URINE NEGATIVE (NEGATIVE); UGLUCOSE NEGATIVE (NEGATIVE); UROBILINOGEN,URINE 0.2 EU/dL (0.2)
[2023-12-29 15:37] LABS: ALBUMIN 3.9 g/dL (3.4-5.0); BILIRUBIN,DIRECT 0.1 mg/dL (0.0-0.2); BILIRUBIN,TOTAL 0.5 mg/dL (0.2-1.0); TOTAL PROTEIN, SERUM 7.8 g/dL (6.4-8.2)
[2023-12-29 15:39] LABS: ADD URINE CULTURE YES; BACTERIA,URINE Few /HPF (None Seen); SQUAMOUS EPITHELIAL CELL,UR Moderate /HPF (None Seen); WBC,URINE 21-50 /HPF (0-3)
[2023-12-29] MEDS ORDERED: CEPHALEXIN MONOHYDRATE 500 MG CAPSULE PO ONE (21:04)
[2023-12-29] MEDS: CEPHALEXIN MONOHYDRATE 500 MG CAPSULE PO ONE (21:05)
[2023-12-29 21:09] VITALS: BP 141/80; O2SAT 100
[2023-12-29] MEDS ORDERED: CEPH500T PO (21:30)
== END 2023-12-29 22:00 | disposition home or self-care (01) ==
LOC: ER 13:16
DX: N93.9 Abnormal uterine and vaginal bleeding, unspecified (principal); N39.0 Urinary tract infection, site not specified; R10.2 Pelvic and perineal pain; R30.0 Dysuria; I10 Essential (primary) hypertension; E11.9 Type 2 diabetes mellitus without complications; Z91.013 Allergy to seafood
CPT/HCPCS: 36415; 76856-TC; 80048-TC; 80076-TC; 81001; 83690-TC; 85025-TC; 85730-TC; 87086-TC